=== PATIENT | male | born 1985 | race Hispanic/Latino ===

== ENCOUNTER 2018-06-22 04:06 | Observation (INO) | payer SELFPAY ==
[~2018-06-22] VITALS: Ht 185.4 cm; Wt 85.0 kg
[2018-06-22] MEDS ORDERED: HYOSCYAMINE SULFATE 0.125 MG TAB.SUBL SL ONE (04:27)
[2018-06-22] MEDS ORDERED: FAMOTIDINE/PF 20 MG/2 ML VIAL IV ONE (04:27)
[2018-06-22 04:29] LABS: APPEARANCE,URINE Cloudy (CLEAR); BILIRUBIN,URINE Negative (NEGATIVE); COLOR,URINE Yellow (YELLOW); GLUCOSE, URINE (UA) Negative (NEGATIVE); KETONES,URINE Negative (NEGATIVE); LEUKOCYTE ESTERASE ,URINE Trace (NEGATIVE); NITRATE,URINE Negative (NEGATIVE); OCCULT BLOOD,URINE Large (NEGATIVE); PROTEIN,URINE Negative (NEGATIVE); UROBILINOGEN,URINE 0.2 mg/dL (0.2-1.0)
[2018-06-22 04:31] LABS: BASOPHILS % (AUTO) 0.3 % (0.0-5.0); EOSINOPHILS % (AUTO) 2.2 % (0.0-8.0); HEMATOCRIT 46.9 % (42-54); LYMPHOCYTES % (AUTO) 19.2 % (21.0-51.0); MEAN CORPUSCULAR HEMOGLOBIN 29.3 pg (27.0-33.0); MEAN CORPUSCULAR HGB CONC 33.5 g/dL (32.0-36.0); MEAN CORPUSCULAR VOLUME 87.5 fL (79-99); MONOCYTES % (AUTO) 6.2 % (3.0-13.0); NEUTROPHILS % (AUTO) 72.1 % (40.0-77.0); PLATELET COUNT (AUTO) 343 K/uL (130-400); RED BLOOD CELL COUNT(AUTO) 5.36 MIL/uL (4.50-6.20); RED CELL DISTRIBUTION WIDTH 13.6 % (11.0-15.5); WHITE BLOOD COUNT (AUTO) 15.5 K/uL (4.8-10.8)
[2018-06-22 04:37] LABS: BACTERIA,URINE None Seen /HPF (None Seen); SQUAMOUS EPITHELIAL CELL,UR Rare /HPF (0-2); WBC,URINE 0-1 /HPF (0-1)
[2018-06-22 04:40] LABS: CREATININE 1.3 mg/dL (0.5-1.5); POTASSIUM 3.7 mmol/L (3.5-5.1)
[2018-06-22 04:44] LABS: ALBUMIN 3.7 g/dL (3.5-5.0); BILIRUBIN,TOTAL 0.4 mg/dL (0.2-1.0); TOTAL PROTEIN, SERUM 8.3 g/dL (6.0-8.3)
[2018-06-22] MEDS ORDERED: LEVOFLOXACIN 500 MG/D5W 100 ML 100 ML IV SCH (08:00)
[2018-06-22] MEDS: SODIUM CHLORIDE 0.9% 1000ML 1,000 ML IV SCH ×2 (08:00→16:16)
[2018-06-22] MEDS ORDERED: ONDANSETRON HCL 4 MG/2 ML VIAL IVP PRN (08:00)
[2018-06-22] MEDS ORDERED: MORPHINE SULFATE 2 MG/ML 1ML SYG IVP PRN (08:00)
[2018-06-22] MEDS: METRONIDAZOLE 500MG/100ML BAG 100 ML IVPB SCH ×2 (09:00→17:24)
[2018-06-22] MEDS ORDERED: ENOXAPARIN SODIUM 30 MG/0.3 ML SQ SCH (09:00)
[2018-06-22] MEDS ORDERED: FAMOTIDINE/PF 20 MG/2 ML VIAL IV SCH ×2 (09:00)
[2018-06-22] MEDS ORDERED: MORPHINE SULFATE 4 MG/1ML SYG ONE ×2 (10:19→16:23)
[2018-06-22] MEDS ORDERED: LEVOFLOXACIN 500 MG/D5W 100 ML 100 ML ONE (10:19)
[2018-06-22] MEDS ORDERED: SODIUM CHLORIDE 0.9% 1000ML 1,000 ML IV ONE (10:20)
--- NOTE | 2018-06-22 13:00 | NUR ---
ADMISION RECEIVED PATIENT FROM ER. VITAL SIGNS STABLE. ASSESSMENT DONE AND DOCUMENTED. PATIENT COMPLAINS OF RLQ PAIN. MEDICATED PER [facility]. WILL CONTINUE TO MONITOR CLOSELY.
--- NOTE | 2018-06-22 13:00 | NUR ---
PER DR. BLUE, PATIENT CAN BE D/C AND FOLLOW UP IN HIS OFFICE ON SUNDAY. PATIENT AND PRIMARY DR. HAMMOND AWARE.
[2018-06-22 13:02] VITALS: BP 146/82
[2018-06-22] MEDS ORDERED: KETOROLAC TROMETHAMINE 15MG/ML IV PRN (13:15)
--- NOTE | 2018-06-22 15:00 | NUR ---
ROUND DR. HAMMOND VISITED WITH PATIENT. POC DISCUSSED. NEW ORDERS RECEIVED AND CARRIED OUT. DR. BLUE TO BE CONSULTED . REASON FOR CONSULT RIGHT INGUINAL HERNIA- FAT CONTAINING.
[2018-06-22 16:34] VITALS: BP 127/73
== END 2018-06-22 19:15 | disposition home or self-care (01) ==
LOC: EDH 04:06 → EDHIP 04:07 → 3CH 12:25
PROVIDERS: ADMIT Hospitalist; ATTEND Hospitalist
DX: K40.90 Unilateral inguinal hernia, without obstruction or gangrene, not specified as recurrent (principal); D18.03 Hemangioma of intra-abdominal structures; D72.829 Elevated white blood cell count, unspecified
CPT/HCPCS: 36415; 74018; 74178; 80053; 81001; 83690; 85025; 96365; 96375; 99284; G0378 ×15; J1885; J1956; J2270 ×2; J3490 ×2; J7030